=== PATIENT | female | born 1975 | race Caucasian/White ===

== ENCOUNTER 2022-05-07 15:31 | Outpatient (CLI) | payer BC, OTHER, SELFPAY ==
[2022-05-07 12:49] LABS: Cholesterol* 184 mg/dL (90-199)
[2022-05-07 12:50] LABS: Glucose* 98 mg/dL (60-115); HDL Cholesterol* 59 mg/dL (>=50); LDL Cholesterol Calculated 111 mg/dL (<100); Triglycerides* 68 mg/dL (40-149)
== END 2022-05-07 15:32 | disposition home or self-care (01) ==
PROVIDERS: PCP Emergency Medicine; Visit Provider Emergency Medicine
DX: Z13.1 Encounter for screening for diabetes mellitus (principal); Z13.6 Encounter for screening for cardiovascular disorders
CPT/HCPCS: 80061; 82947

== ENCOUNTER 2022-10-22 09:58 | Outpatient (CLI) | payer BC, SELFPAY | END 2022-10-22 09:59 | disposition home or self-care (01) | LOC: OP CLINIC 10:00 | PROVIDERS: PCP Emergency Medicine; Visit Provider Internal Medicine | DX: Z12.11 Encounter for screening for malignant neoplasm of colon (principal); K64.8 Other hemorrhoids | CPT/HCPCS: 45378; J2250; J3010 ==

== ENCOUNTER 2023-07-20 08:51 | Outpatient (CLI) | payer BC, SELFPAY | END 2023-07-20 08:52 | disposition home or self-care (01) | PROVIDERS: PCP Emergency Medicine; Visit Provider Emergency Medicine | DX: Z00.00 Encounter for general adult medical examination without abnormal findings (principal); R00.2 Palpitations; Z13.6 Encounter for screening for cardiovascular disorders; Z13.1 Encounter for screening for diabetes mellitus | CPT/HCPCS: 80048; 80061; 84443 ==

== ENCOUNTER 2023-09-19 14:45 | Outpatient (CLI) | payer BC, SELFPAY ==
--- NOTE | 2023-09-19 15:00 | US_ITS ---
Patient: GEORGES GRADY Facility:?[facility] RIS Patient ID:?[id number] Site Patient ID:?[id number] Site :?1975 Study:?US-Pelvis PELVIS TA & TV-09/19/2023 8:16:35 AM Ordering Physician:?LOAN BARNEY Final Report: INDICATION: Abnormal cytology on pap COMPARISON: 05/07/2018 TECHNIQUE: 2D stanlye scale and color Doppler images were acquired of the pelvis using a transabdominal and transvaginal approach. FINDINGS: Sonographic images demonstrate a normal size and smooth outer contour of the uterus. Uterus measures 8.3 cm in length by 4.4 cm in AP diameter by 5.7 cm in transverse dimension. The myometrium has a normal uniform echotexture. IUD is present within the mid endometrial canal. The endometrial thickness is 3 millimeters. Incidental cervical nabothian cysts noted. The right ovary measures 2.7 x 1.9 x 2.1 cm in size and the left ovary measures 3.8 x 2.1 x 2.7 cm. The ovaries demonstrate normal arterial and venous blood flow on color Doppler analysis. There are no suspicious fluid collections within the cul-de-sac. IMPRESSION: IUD is present within the midportion of the endometrial canal. No uterine fibroid. No suspicious masses by ultrasound. Dictated by Alexis Narayanan MD @ 09/23/2023 10:47:33 AM Signed by:?Alexis Narayanan MD @09/23/2023 10:47:33 AM (Electronic Signature)
== END 2023-09-19 14:46 | disposition home or self-care (01) ==
LOC: US 14:46
PROVIDERS: PCP Emergency Medicine; Visit Provider Emergency Medicine
DX: R87.619 Unspecified abnormal cytological findings in specimens from cervix uteri (principal)
CPT/HCPCS: 76830; 76856

== ENCOUNTER 2023-12-21 13:07 | Outpatient (CLI) | payer BC, SELFPAY ==
--- NOTE | 2023-12-21 13:20 | MM_ITS ---
Patient: GEORGES GRADY Facility:?[facility] Patient ID:?[id number] Site Patient ID:?[id number] Site :?1975 Study:?XRay-Breast Bilateral 3D W/CAD-12/21/2023 1:30:36 PM Ordering Physician:Caroline Cornelius Final Report: BILATERAL SCREENING MAMMOGRAM WITH COMPUTER-AIDED DETECTION AND TOMOSYNTHESIS TECHNIQUE: CC and MLO views were obtained. These mammographic images have been obtained using full-field digital technique. These mammographic images were interpreted with the benefit of computer-aided detection. Breast Tomosynthesis was used in this interpretation. COMPARISON FILM: 12/14/22, 10/13/21, 10/06/20. FINDINGS: The breasts are extremely dense, which lowers the sensitivity of mammography. IMPRESSION: There is no radiographic evidence for malignancy. ASSESSMENT: BI-RADS Category 1: Negative RECOMMENDATION: Routine screening mammogram in 1 year. A lay language report of this examination will be provided to the patient. Alexis Nraayanan M.D. Diagnostic Radiologist [email or web address] ADARSH/sp R& Transcribed: 4:01 p.m. SP/Dictated by: Alexis Narayanan MD @ 12/22/2023 1:17:00 PM Signed by:?Alexis Narayanan MD @12/22/2023 4:04:51 PM (Electronic Signature)
== END 2023-12-21 13:08 | disposition home or self-care (01) ==
LOC: MAMMO 13:08
PROVIDERS: PCP Emergency Medicine; Visit Provider Emergency Medicine
DX: Z12.31 Encounter for screening mammogram for malignant neoplasm of breast (principal); R92.2 Inconclusive mammogram
CPT/HCPCS: 77063; 77067

== ENCOUNTER 2025-01-08 18:29 | Outpatient (CLI) | payer BC, SELFPAY ==
--- NOTE | 2025-01-08 18:40 | CRLHL7_ITS ---
For Patients: As a result of the Century Cures Act, medical imaging exams and procedure reports are released immediately into your electronic medical record. You may view this report before your referring provider. If you have questions, please contact your health care provider. INDICATION: BILATERAL SCREENING MAMMOGRAM, ASYMPTOMATIC 49Y/F COMPARISON: 12/21/23, 12/14/22, 10/13/21 TECHNIQUE: Digital mammogram in CC and MLO projections including computer-aided detection (CAD) and tomosynthesis. BREAST COMPOSITION: The breasts are heterogeneously dense, which may obscure small masses. FINDINGS: No suspicious findings. ASSESSMENT: BI-RADS 1 Negative RECOMMENDATION: Annual screening mammogram. A lay language report of this examination will be provided to the patient. Dictated by: Alexis Narayanan MD @ 01/09/2025 10:34:34 (Electronically Signed)
== END 2025-01-08 18:30 | disposition home or self-care (01) ==
LOC: MAMMO 18:30
PROVIDERS: PCP Emergency Medicine; Visit Provider Emergency Medicine
DX: Z12.31 Encounter for screening mammogram for malignant neoplasm of breast (principal); R92.333 Mammographic heterogeneous density, bilateral breasts
CPT/HCPCS: 77063; 77067